=== PATIENT | female | born 1980 | race Caucasian/White ===

== ENCOUNTER 2016-09-08 09:31 | Emergency (ER) | payer BC, OTHER ==
[~2016-09-08] VITALS: Ht 167.6 cm; Wt 114.8 kg
[~2016-09-08 09:31] MED LIST: B-CO1CAP5 PO; BUSP15TA70 PO; CIPR-255 PO; CLR10 PO; CTP/1 PO; DOCU100C31 PO; DTR/5 PO; ESCI10TA17 PO; LOSA100T65 PO; MAGN400T6 PO; METO50TA16 PO; OMEP40CA PO; OXYC1TAB3 PO; PHEN-939 PO
[2016-09-08 09:34] VITALS: Ht 167.6 cm; Wt 114.8 kg
[2016-09-08] MEDS ORDERED: SODIUM CHLORIDE 0.9% 1000ML 1,000 ML IV STA ×2 (09:57)
[2016-09-08] MEDS ORDERED: KETOROLAC TROMETHAMINE 30 MG/ML VIAL IV STA (09:57)
[2016-09-08] MEDS ORDERED: ONDANSETRON INJ 2 MG/ML 2 ML VIAL IV STA (09:57)
--- NOTE | 2016-09-08 10:11 | EMERGENCY ROOM VISIT NOTE ---
History Report prepared by Nikita: Juma Rubin Under the Supervision of: Dr. Marina Campo M.D. First contact with patient: 09:41 Chief Complaint: FLU LIKE SX Stated Complaint: SEVERE STOMACH PAIN,DIARRHEA,FEVER,NAUSEA History of Present Illness The patient is a 36 year old female who presents to the Emergency Room with complaints of severe diarrhea starting about a week ago. She describes it to be watery in quality. She denies any blood in stool. The patient also complains of mid-abdominal cramps and nausea. The patient started having a fever about 4 days ago. Her highest temperature was 101 degrees Fahrenheit. The patient also notes a loss of appetite. She denies any recent ill contacts or any recent antibiotics. The patient denies vomiting, urinary symptoms, or any other complaints. She denies any history of cholecystectomy. She has a history of gallstones. Source of History: patient Onset: about a week ago Position: other (global) Symptom Intensity: severe Quality: other (diarrhea) Associated Symptoms: + abdominal pain, + fevers, + nausea, No urinary symptoms, No vomiting Review of Systems See HPI for pertinent positives & negatives. A total of 10 systems reviewed and were otherwise negative. Past Medical & Surgical Medical Problems: (1) Abscess (2) Anxiety (3) Back pain, acute (4) Bipolar disorder (5) Depression (6) Depressive Disorder Nec (7) Encounter for wound re-check (8) Heart burn (9) Herpes (10) Hypertension Nos (11) Migraine (12) Renal calculus (13) Suicidal ideation Surgical Problems: (1) Hx of tonsillectomy (2) Previous section Family History Cancer Diabetes mellitus Gallbladder disease Heart disease Hypertension Kidney disease Kidney stones Lung disease Social History Smoking Status: Current Every Day Smoker Alcohol Use: occasionally Marital Status: in relationship Housing Status: lives with significant other Occupation Status: employed Current/Historical Medications Scheduled Ascorbic Acid (Vitamin C), 1 TAB PO DAILY Azithromycin (Azithromycin), 1 TAB PO DAILY Buspirone Hcl (Buspar), 15 MG PO TID Clonidine Hcl (Catapres), 0.1 MG PO QAM Escitalopram Oxalate (Escitalopram Oxalate), 1 TAB PO DAILY Loratadine (Claritin), 10 MG PO DAILY Losartan Potassium (Cozaar), 50 MG PO DAILY Metoprolol Tartrate (Metoprolol Tartrate), 1 TAB PO BID Omeprazole (Prilosec), 40 MG PO DAILY Valacyclovir (Valtrex), 500 MG PO BID Allergies Coded Allergies: Lisinopril (Verified Adverse Reaction, Unknown, Cough, 09/08/16) Reported by PT Physical Exam Vital Signs Date Time Temp Pulse Resp B/P Pulse Ox O2 Delivery O2 Flow Rate FiO2 09/08/16 15:46 83 18 176/102 98 09/08/16 14:28 36.9 84 148/105 98 Room Air 09/08/16 12:44 73 20 157/78 96 Room Air 09/08/16 10:50 77 20 157/78 96 Room Air 09/08/16 09:34 37.2 86 20 142/93 95 Room Air Physical Exam Vital signs reviewed. General: Well-appearing, obese, in some discomfort. HEENT: No scleral icterus, PERRLA, neck supple. Atraumatic. Cardiovascular: Regular rate and rhythm, no extra sounds. Pulmonary: Clear to auscultation bilaterally, normal work of breathing. Abdomen: Soft, tenderness along the right upper quadrant, some guarding, nondistended, no tympany, positive bowel sounds. Musculoskeletal: Atraumatic, no peripheral edema. Neurologic: Patient awake alert and oriented x 3, full strength in all 4 extremities. Cranial nerves 2 through 12 grossly intact. Skin: Warm, dry, no rash Medical Decision & Procedures ER Provider Diagnostic Interpretation: X-ray results as stated below per interpretation by me and the radiologist: ABDOMEN 2VIEW W/PA CHEST RTN CLINICAL HISTORY: nausea, diarrhea pain. Nausea. COMPARISON STUDY: 02/18/2016 FINDINGS: The soft tissues, psoas shadows, renal outlines and intestinal gas pattern appear normal. There is no evidence for bowel obstruction. There is no evidence for free intraperitoneal air. No abnormal abdominal calcifications are seen. A frontal view of the chest was performed and is unremarkable. IMPRESSION: Normal study. Electronically signed by: Paolo Love M.D. 09/08/2016 2:26 PM Dictated Date/Time: 09/08/2016 2:26 PM US results as stated below per my review and radiologist interpretation: ABDOMINAL ULTRASOUND, RIGHT UPPER QUADRANT HISTORY: RUQ pain, diarrhea. COMPARISON: Abdomen and pelvis CT 02/11/2016. FINDINGS: Pancreas: Not well visualized due to overlying bowel gas. Liver: The liver is echogenic consistent with fatty change. Mildly enlarged measuring 20 cm in length. Gallbladder: Trace sludge and 1.8 cm stone. No gallbladder wall thickening. CBD: 3 mm. Right kidney: No hydronephrosis. IMPRESSION: 1. Cholelithiasis. No gallbladder wall thickening. 2. Hepatomegaly demonstrating fatty change. 3. The pancreas was not well visualized due to overlying bowel gas. Electronically signed by: Jesus Fitzgerald M.D. 09/08/2016 11:36 AM Dictated Date/Time: 09/08/2016 11:34 AM Laboratory Results 09/08/16 10:10 Red Blood Count 4.16, Mean Corpuscular Volume 86.8, Mean Corpuscular Hemoglobin 29.1, Mean Corpuscular Hemoglobin Concent 33.5, Mean Platelet Volume 10.1, Neutrophils (%) (Auto) 79.7, Lymphocytes (%) (Auto) 14.4, Monocytes (%) (Auto) 5.0, Eosinophils (%) (Auto) 0.3, Basophils (%) (Auto) 0.2, Neutrophils # (Auto) 9.40, Lymphocytes # (Auto) 1.70, Monocytes # (Auto) 0.59, Eosinophils # (Auto) 0.03, Basophils # (Auto) 0.02 09/08/16 10:10 Test 09/08/16 09:32 09/08/16 10:10 Lab Scanned Report Laboratory Report/Additional White Blood Count 11.79 K/uL (4.8-10.8) Red Blood Count 4.16 M/uL (4.2-5.4) Hemoglobin 12.1 g/dL (12.0-16.0) Hematocrit 36.1 % (37-47) Mean Corpuscular Volume 86.8 fL (80-100) Mean Corpuscular Hemoglobin 29.1 pg (25-34) Mean Corpuscular Hemoglobin Concent 33.5 g/dl (32-36) Platelet Count 206 K/uL (130-400) Mean Platelet Volume 10.1 fL (7.4-10.4) Neutrophils (%) (Auto) 79.7 % Lymphocytes (%) (Auto) 14.4 % Monocytes (%) (Auto) 5.0 % Eosinophils (%) (Auto) 0.3 % Basophils (%) (Auto) 0.2 % Neutrophils # (Auto) 9.40 K/uL (1.4-6.5) Lymphocytes # (Auto) 1.70 K/uL (1.2-3.4) Monocytes # (Auto) 0.59 K/uL (0.11-0.59) Eosinophils # (Auto) 0.03 K/uL (0-0.5) Basophils # (Auto) 0.02 K/uL (0-0.2) RDW Standard Deviation 43.7 fL (36.4-46.3) RDW Coefficient of Variation 13.7 % (11.5-14.5) Immature Granulocyte % (Auto) 0.4 % Immature Granulocyte # (Auto) 0.05 K/uL (0.00-0.02) Urine Color DK YELLOW Urine Appearance CLOUDY (CLEAR) Urine pH 6.0 (4.5-7.5) Urine Specific [place] 1.027 (1.000-1.030) Urine Protein 1+ (NEG) Urine Glucose (UA) NEG (NEG) Urine Ketones TRACE (NEG) Urine Occult Blood NEG (NEG) Urine Nitrite NEG (NEG) Urine Bilirubin NEG (NEG) Urine Urobilinogen NEG (NEG) Urine Leukocyte Esterase NEG (NEG) Urine WBC (Auto) 1-5 /hpf (0-5) Urine RBC (Auto) 0-4 /hpf (0-4) Urine Hyaline Casts (Auto) 0 /lpf (0-5) Urine Epithelial Cells (Auto) >30 /lpf (0-5) Urine Bacteria (Auto) NEG (NEG) Urine Renal Epithelial Cells /lpf (0-5) Urine Pathogenic Casts /lpf (0) Urine Mucus PRESENT (NONE PRSENT) Anion Gap 6.0 mmol/L (3-11) Est Creatinine Clear Calc Drug Dose 114.6 ml/min Estimated GFR () 98.0 Estimated GFR (Non- 84.6 BUN/Creatinine Ratio 13.1 (10-20) Calcium Level 8.3 mg/dl (8.5-10.1) Magnesium Level 1.9 mg/dl (1.8-2.4) Total Bilirubin 0.3 mg/dl (0.2-1) Direct Bilirubin < 0.1 mg/dl (0-0.2) Aspartate Amino Transf (AST/SGOT) 13 U/L (15-37) Alanine Aminotransferase (ALT/SGPT) 25 U/L (12-78) Alkaline Phosphatase 64 U/L (45-117) Total Protein 6.4 gm/dl (6.4-8.2) Albumin 3.3 gm/dl (3.4-5.0) Lipase 156 U/L (73-393) Influenza Type A Antigen Neg for Influ A (NEG) Influenza Type B Antigen Neg for Influ B (NEG) Laboratory results per my review. Medications Administered Medications (Trade) Dose Ordered Sig/Lucius Route Start Time Stop Time Status Last Admin Dose Admin Sodium Chloride 1,000 ml @ 999 mls/hr Q1H1M STAT IV 09/08/16 09:57 09/08/16 10:57 DC 09/08/16 10:21 999 MLS/HR Sodium Chloride (Nss 1000ml) 1,000 ml @ 200 mls/hr Q5H STAT IV 09/08/16 09:57 09/08/16 14:56 DC 09/08/16 10:54 200 MLS/HR Ondansetron HCl (Zofran Inj) 4 mg NOW STAT IV 09/08/16 09:57 09/08/16 10:00 DC 09/08/16 10:21 4 MG Ketorolac Tromethamine (Toradol Inj) 30 mg NOW STAT IV 09/08/16 09:57 09/08/16 10:00 DC 09/08/16 10:21 30 MG Potassium Chloride 40 meq 40 meq NOW STAT PO 09/08/16 12:26 09/08/16 12:28 DC 09/08/16 12:48 40 MEQ Promethazine HCl/ Sodium Chloride (Phenergan Inj/ Nss 50ml) 50.5 ml @ 204 mls/hr NOW STAT IV 09/08/16 13:10 09/08/16 13:24 DC 09/08/16 13:25 204 MLS/HR Azithromycin (Zithromax Tab) 500 mg NOW ONCE PO 09/08/16 15:15 09/08/16 15:16 DC 09/08/16 15:39 500 MG ED Course 0941: Past medical records reviewed. The patient was evaluated in room C05. A complete history and physical examination was performed. 0957: Toradol Inj 30 mg IV, Zofran Inj 4 mg IV, Sodium Chloride 1000 ml @ 200 mls/hr IV, Sodium Chloride 1000 ml @ 999 mls/hr IV 1226: Potassium Chloride 40 meq PO 1310: Promethazine HCl 12.5 mg/Sodium Chloride 50.5 ml @ 204 mls/hr IV 1515: Azithromycin 500 mg PO. Upon reevaluation, the patient appeared to have improvement of her symptoms. I discussed findings with her. She verbalized agreement of the treatment plan. She was discharged home. Medical Decision Differential diagnosis: Etiologies such as viral illness, appendicitis, diverticulitis, PUD, biliary pathology, UTI, pancreatitis, obstruction, mesenteric ischemia, aortic pathology , infections, inflammatory bowel disease, renal colic, as well as others were entertained. This patient was evaluated and appeared to be in no significant distress. IV access was obtained and laboratory work was drawn. The patient was hydrated with normal saline solution, given IV Toradol and Zofran. Laboratory work reveals a mild leukocytosis. On reevaluation the patient was feeling improved however she did complain of continued nausea. She was given IV Phenergan with relief. She is able to tolerate 40 mEq of by mouth potassium. Stool cultures were obtained and the peripheral smear is positive for Campylobacter. The patient has had diarrhea several times in the emergency department. She was informed of the findings and will be treated with a azithromycin. She'll follow -up with her physician for reevaluation this week and return to the ER for worsening of symptoms or any medical concerns. Impression Primary Impression: Campylobacter jejuni food poisoning Scribe Attestation The scribe's documentation has been prepared under my direction and personally reviewed by me in its entirety. I confirm that the note above accurately reflects all work, treatment, procedures, and medical decision making performed by me. Departure Information Dispostion Home / Self-Care Prescriptions Azithromycin (Azithromycin) 250 Mg Tab 1 TAB PO DAILY, #4 TABS Prov: Marina Campo M.D. 09/08/16 Referrals Sadie Bob DO (PCP) Forms HOME CARE DOCUMENTATION FORM, IMPORTANT VISIT INFORMATION Patient Instructions Campylobacter Culture Stool, My [facility] Additional Instructions Diagnosis: Campylobacter Azithromycin 250 mg daily for 4 more days, start tomorrow. Drink plenty of clear fluids. Tylenol 650 mg every 6 hours as needed for pain or fever. Return to emergency for worsening of symptoms or any medical concerns.
[2016-09-08 10:32] LABS: BASO % 0.2 %; BASO ABS # 0.02 K/uL (0-0.2); COMPLETE YES; EOS % 0.3 %; HEMATOCRIT 36.1 % (37-47); IG% 0.4 %; LYMPH % 14.4 %; MEAN CELL VOLUME 86.8 fL (80-100); MEAN CORPUSCULAR HEMOGLOBIN 29.1 pg (25-34); MEAN CORPUSCULAR HGB CONC 33.5 g/dl (32-36); MEAN PLATELET VOLUME 10.1 fL (7.4-10.4); NEUT % 79.7 %; PLATELET COUNT 206 K/uL (130-400); RED BLOOD COUNT 4.16 M/uL (4.2-5.4); WHITE BLOOD COUNT 11.79 K/uL (4.8-10.8)
[2016-09-08 10:35] LABS: URINE APPEARANCE CLOUDY (CLEAR); URINE BILIRUBIN NEG (NEG); URINE COLOR DK YELLOW; URINE EPITHELIAL CELL AUTO >30 /lpf (0-5); URINE NITRITE NEG (NEG); URINE SPECIFIC GRAVITY 1.027 (1.000-1.030); UROBILINOGEN NEG (NEG); ZZUR CULT IF INDIC CLEAN CATCH NO
[2016-09-08 10:44] LABS: MANUAL MICROSCOPIC REQUIRED? NO; REVIEW REQ? YES
[2016-09-08 10:48] LABS: ALT/SGPT 25 U/L (12-78); BLOOD UREA NITROGEN 12 mg/dl (7-18); BUN/CREATININE RATIO 13.1 (10-20); CALCIUM 8.3 mg/dl (8.5-10.1); CARBON DIOXIDE 30 mmol/L (21-32); CHLORIDE 107 mmol/L (98-107); CREATININE 0.89 mg/dl (0.60-1.20); GLUCOSE 99 mg/dl (70-99); MAGNESIUM 1.9 mg/dl (1.8-2.4); SODIUM 143 mmol/L (136-145)
[2016-09-08 10:51] LABS: ALKALINE PHOSPHATASE 64 U/L (45-117); AST/SGOT 13 U/L (15-37)
[2016-09-08 11:04] LABS: URINE MUCUS PRESENT (NONE PRSENT)
--- NOTE | 2016-09-08 11:38 | DIAGNOSTIC IMAGING REPORT ---
ABDOMINAL ULTRASOUND, RIGHT UPPER QUADRANT HISTORY: RUQ pain, diarrhea. COMPARISON: Abdomen and pelvis CT 02/11/2016. FINDINGS: Pancreas: Not well visualized due to overlying bowel gas. Liver: The liver is echogenic consistent with fatty change. Mildly enlarged measuring 20 cm in length. Gallbladder: Trace sludge and 1.8 cm stone. No gallbladder wall thickening. CBD: 3 mm. Right kidney: No hydronephrosis. IMPRESSION: 1. Cholelithiasis. No gallbladder wall thickening. 2. Hepatomegaly demonstrating fatty change. 3. The pancreas was not well visualized due to overlying bowel gas. Electronically signed by: Jesus Fitzgerald M.D. 09/08/2016 11:36 AM Dictated Date/Time: 09/08/2016 11:34 AM
[2016-09-08] MEDS ORDERED: POTASSIUM CHLORIDE 10 MEQ TABCR PO STA (12:26)
[2016-09-08] MEDS ORDERED: VALA500T60 PO (12:49)
[2016-09-08] MEDS ORDERED: ASCO10003 PO (12:49)
[2016-09-08] MEDS ORDERED: LOSA50TA6 PO (12:49)
[2016-09-08] MEDS ORDERED: METO-722 PO (12:49)
[2016-09-08] MEDS ORDERED: LXP/20 PO (12:49)
[2016-09-08] MEDS ORDERED: OMEP40CA41 PO (12:49)
[2016-09-08] MEDS ORDERED: PROMETHAZINE HCL INJ 12.5 MG in SODIUM CHLORIDE 0.9% 50ML 50 ML IV STA (13:10)
[2016-09-08 14:28] VITALS: TEMP 36.9
--- NOTE | 2016-09-08 14:29 | DIAGNOSTIC IMAGING REPORT ---
ABDOMEN 2VIEW W/PA CHEST RTN CLINICAL HISTORY: nausea, diarrhea pain. Nausea. COMPARISON STUDY: 02/18/2016 FINDINGS: The soft tissues, psoas shadows, renal outlines and intestinal gas pattern appear normal. There is no evidence for bowel obstruction. There is no evidence for free intraperitoneal air. No abnormal abdominal calcifications are seen. A frontal view of the chest was performed and is unremarkable. IMPRESSION: Normal study. Electronically signed by: Paolo Love M.D. 09/08/2016 2:26 PM Dictated Date/Time: 09/08/2016 2:26 PM
[2016-09-08] MEDS ORDERED: AZITHROMYCIN 250 MG TAB PO ONE (15:15)
[2016-09-08] MEDS ORDERED: AZIT-57 PO (15:17)
[2016-09-08 15:46] VITALS: BP 176/102; PULSE 83; O2SAT 98
--- NOTE | 2016-09-09 12:50 | Pharmacy Progress Note ---
ED Pharmacist Culture FollowUp Date of Service: Sep 09, 2016. Patient was sent home with a prescription for azithromycin, which should cover the Campylobacter growing from the patient's stool culture.
== END 2016-09-08 15:46 | disposition home or self-care (01) ==
LOC: C.EDB 09:32 → C.EDC 15:46
DX: A04.5 Campylobacter enteritis (principal); T62.91XA Toxic effect of unspecified noxious substance eaten as food, accidental (unintentional), initial encounter; X58.XXXA Exposure to other specified factors, initial encounter; F41.9 Anxiety disorder, unspecified; F31.9 Bipolar disorder, unspecified; F32.9 Major depressive disorder, single episode, unspecified; I10 Essential (primary) hypertension; G43.909 Migraine, unspecified, not intractable, without status migrainosus; Z87.442 Personal history of urinary calculi; Z91.5 Personal history of self-harm; Z80.9 Family history of malignant neoplasm, unspecified; Z83.3 Family history of diabetes mellitus; Z83.79 Family history of other diseases of the digestive system; Z82.49 Family history of ischemic heart disease and other diseases of the circulatory system; Z84.1 Family history of disorders of kidney and ureter; Z83.6 Family history of other diseases of the respiratory system; F17.210 Nicotine dependence, cigarettes, uncomplicated; Z79.899 Other long term (current) drug therapy

== ENCOUNTER → 2016-10-07 | Outpatient (CLI) | payer BC ==
[~2016-10-07] MED LIST changes: +ASCO10003 PO; +AZIT-57 PO; -B-CO1CAP5 PO; -CIPR-255 PO; -DOCU100C31 PO; -DTR/5 PO; -ESCI10TA17 PO; -LOSA100T65 PO; +LOSA50TA6 PO; +LXP/20 PO; -MAGN400T6 PO; +METO-722 PO; -METO50TA16 PO; -OMEP40CA PO; +OMEP40CA41 PO; -OXYC1TAB3 PO; -PHEN-939 PO; +VALA500T60 PO
--- NOTE | 2016-10-07 12:50 | DIAGNOSTIC IMAGING REPORT ---
KUB CLINICAL HISTORY: Right kidney stone. COMPARISON STUDY: CT of the abdomen and pelvis February 11, 2016 and KUB September 08, 2016. FINDINGS: Pelvic calcifications reflect phleboliths. No urinary calculi are identified on this exam. A few left upper quadrant densities are probably artifactual. IMPRESSION: No urinary calculi identified. Electronically signed by: Wei Giron M.D. 10/07/2016 12:49 PM Dictated Date/Time: 10/07/2016 12:47 PM
== END | disposition home or self-care (01) ==
LOC: C.RAD1850 12:36
PROVIDERS: ATTEND Urology
DX: N20.0 Calculus of kidney (principal)

== ENCOUNTER → 2017-02-16 | Outpatient (CLI) | payer BC ==
[~2017-02-16] MED LIST changes: -AZIT-57 PO; +ZTHM250 PO
[2017-02-16 17:35] LABS: BASO % 0.2 %; BASO ABS # 0.02 K/uL (0-0.2); COMPLETE YES; EOS % 1.3 %; HEMATOCRIT 42.1 % (37-47); IG% 0.5 %; LYMPH % 19.3 %; LYMPH ABS # 2.43 K/uL (1.2-3.4); MEAN CELL VOLUME 90.9 fL (80-100); MEAN CORPUSCULAR HEMOGLOBIN 29.2 pg (25-34); MEAN CORPUSCULAR HGB CONC 32.1 g/dl (32-36); MEAN PLATELET VOLUME 10.2 fL (7.4-10.4); MONO % 3.3 %; NEUT % 75.4 %; PLATELET COUNT 229 K/uL (130-400); RED BLOOD COUNT 4.63 M/uL (4.2-5.4); WHITE BLOOD COUNT 12.59 K/uL (4.8-10.8)
[2017-02-16 17:59] LABS: BLOOD UREA NITROGEN 9 mg/dl (7-18); BUN/CREATININE RATIO 11.1 (10-20); CALCIUM 8.9 mg/dl (8.5-10.1); CARBON DIOXIDE 30 mmol/L (21-32); CHLORIDE 105 mmol/L (98-107); CREATININE 0.83 mg/dl (0.60-1.20); GLUCOSE 112 mg/dl (70-99); POTASSIUM 3.5 mmol/L (3.5-5.1); SODIUM 141 mmol/L (136-145)
[2017-02-16 18:10] LABS: THYROID STIMULATING HORMONE 0.984 uIu/ml (0.300-4.500)
== END | disposition home or self-care (01) ==
LOC: C.LABBFT 11:55
PROVIDERS: ATTEND Family Medicine
DX: N92.0 Excessive and frequent menstruation with regular cycle (principal); I10 Essential (primary) hypertension

== ENCOUNTER → 2017-10-06 | Outpatient (CLI) | payer BC ==
[~2017-10-06] MED LIST changes: +AZIT-57 PO; -ZTHM250 PO
[2017-10-06 12:36] LABS: BASO % 0.3 %; BASO ABS # 0.03 K/uL (0-0.2); EOS % 0.9 %; EOS ABS # 0.09 K/uL (0-0.5); HEMATOCRIT 42.8 % (37-47); HEMOGLOBIN 14.5 g/dL (12.0-16.0); IG# 0.02 K/uL (0.00-0.02); LYMPH % 28.7 %; LYMPH ABS # 2.84 K/uL (1.2-3.4); MEAN CORPUSCULAR HEMOGLOBIN 30.1 pg (25-34); MEAN CORPUSCULAR HGB CONC 33.9 g/dl (32-36); MEAN PLATELET VOLUME 10.6 fL (7.4-10.4); NEUT % 65.9 %; NEUT ABS # 6.52 K/uL (1.4-6.5); PLATELET COUNT 226 K/uL (130-400); RED CELL DISTRIBUTION WIDTH CV 13.1 % (11.5-14.5); RED CELL DISTRIBUTION WIDTH SD 42.8 fL (36.4-46.3)
[2017-10-06 12:46] LABS: BLOOD UREA NITROGEN 10 mg/dl (7-18); CALCIUM 9.1 mg/dl (8.5-10.1); CARBON DIOXIDE 34 mmol/L (21-32); CREATININE 1.04 mg/dl (0.60-1.20); GLUCOSE 106 mg/dl (70-99); POTASSIUM 3.6 mmol/L (3.5-5.1); SODIUM 143 mmol/L (136-145)
== END | disposition home or self-care (01) ==
LOC: C.LABBFT 09:10
PROVIDERS: ATTEND Internal Medicine
DX: R10.13 Epigastric pain (principal)

== ENCOUNTER 2022-04-27 15:27 | Inpatient (IN) ==
[2022-04-27] MEDS ORDERED: cefTRIAXone SODIUM 2,000 MG/70 ML BAG IV STA (15:51)
[2022-04-27] MEDS ORDERED: SODIUM CHLORIDE 0.9% 1000ML 2,000 ML IV ONE (15:51)
[2022-04-27 15:58] LABS: Basophils # (auto) 0.02 K/uL (0-0.2); Basophils % (auto) 0.2 %; Eosinophils # (auto) 0.03 K/uL (0-0.50); Eosinophils % (auto) 0.3 %; Hematocrit (blood only) 35.7 % (34.1-44.9); Hemoglobin 11.8 g/dl (12.0-16.0); Immature Granulocytes # (auto) 0.04 K/uL (0.00-0.02); Immature Granulocytes % (auto) 0.4 %; Lymphocytes # (auto) 1.62 K/uL (1.2-3.4); Lymphocytes % (auto) 14.4 %; Mean Corpuscular Hemoglobin 30.1 pg (25.0-34.0); Mean Corpuscular Hgb Conc 33.1 g/dL (32.0-36.0); Mean Corpuscular Volume 91.1 fL (80.0-100.0); Mean Platelet Volume 9.7 fL (9.4-12.3); Monocytes # (auto) 0.68 K/uL (0.24-0.82); Neutrophils # (auto) 8.89 K/uL (1.4-6.5); Neutrophils % (auto) 78.7 %; Platelet Count 159 K/uL (130-400); RDW Coefficient of Variation 13.2 % (11.5-14.5); RDW Standard Deviation 44.3 fL (36.4-46.3); Red Blood Count 3.92 M/uL (3.93-5.22); White Blood Count 11.28 K/ul (4.8-10.8)
--- NOTE | 2022-04-27 16:00 | Emergency Department Note ---
Impression & Plan Pyelonephritis, Bacteremia due to Gram-negative bacteria, Bilateral flank pain ED Provider Note NAME: TIFFANIE HANNAH AGE: 42 SEX: F : 1980 ARRIVES VIA: Walk-In INFORMANT: Patient, ED PROVIDER(S): Prashanth Smith DO CHIEF COMPLAINT: Flank pain HPI: The patient is a 42-year-old female who presented to the emergency depart [facility] for flank pain. The patient has a history of pyelonephritis. She was diagnosed with pyelonephritis last evening after a visit to the emergency department. The patient started having urinary symptoms approximately the th of this month. She also had her menses. She did not initially present to be seen because she thought she would have blood in her urine anyway and has a history of renal colic. The patient states her symptoms started to worsen. She presented to the emergency department last evening. She had a complete work-up which included a CT of the abdomen and pelvis. This appeared to be consistent with upper urinary tract infection. She was given IV Rocephin last evening and started on cefdinir. She did take 1 dose of the cefdinir. She states that she continues to have flank pain which is mild to moderate. She also has chills. She noticed nausea earlier in the day and dizziness at this time denies having any nausea or vomiting. She denies having any black or bloody bowel moods. She is not been seen by her family doctor recently. She does see a [facility]ian at [facility]. ROS: See above HPI for pertinent positives & negatives. A total of 10 systems reviewed and were otherwise negative. PAST MEDICAL HISTORY: See Below PAST SURGICAL HISTORY: See Below FAMILY HISTORY: See Below SOCIAL HISTORY: See Below HOME MEDICATIONS: See Below ALLERGIES: See Below VITALS: See Below PHYSICAL EXAMINATION: GENERAL: Patient is awake alert in no acute distress patient is resting comfortably and showing no signs of anxiety EYES: The conjunctivae are clear. The pupils are round and reactive. EARS, NOSE, MOUTH AND THROAT: The nose is without any evidence of any deformity. Mucous membranes are moist. Tongue is midline. NECK: The neck is nontender and supple. RESPIRATORY: Normal respiratory effort is noted there is no evidence of wheezing rhonchi or rales CARDIOVASCULAR: Tachycardic rate with regular rhythm was noted. There is no definite murmur. GASTROINTESTINAL: The abdomen is soft. Abdomen is nontender. BACK: Bilateral CVA tenderness was noted which was mild. Range of motion is intact. MUSCULOSKELETAL/EXTREMITIES: There is no evidence of gross deformity full range of motion is noted in the hips and shoulders. SKIN: There is no obvious evidence of any rash. There are no petechiae, pallor or cyanosis noted. NEUROLOGIC: Patient is awake alert and oriented x3 strength is symmetric patellar reflexes are 2+ bilaterally MEDICAL DECISION MAKING: The patient is a 42-year-old female who presented to the emergency department for an evaluation of flank pain. The patient was called to come back to the emergency department for IV antibiotics and inpatient treatment for gram- negative bacteremia. She has a pyelonephritis that was noted on CT yesterday. The patient has been taking her outpatient antibiotics and has seen some improvement in her symptoms. She was evaluated and found have tachycardia. She was not hypotensive. I discussed the patient's condition with the [facility]. They have agreed to evaluate the patient in the emergency department for further management and disposition. Triage Nursing notes reviewed. Prior medical records reviewed Vital Signs: reviewed and remarkable for tachycardia Differential diagnosis: Ovarian torsion, endometriosis, ectopic , pelvic pain, UTI, cystitis, appendicitis, diverticulitis, mesenteric ischemia, PID, inflammatory bowel disease, renal colic, Bartholin's abscess, cervicitis, as well as other pathologies. ER treatment provided: See below Diagnostics interpreted by me: ECG: none Cardiac Monitoring: An order was placed for continuous cardiac monitoring. The monitor shows a rate of 106 bpm with sinus tachycardia. Laboratory studies: As stated above and show below. Imaging studies: See below Consultation(s): I discussed this case with Gloria who is on-call for the [facility]. Past Med/Surg History Medical History Adenomyomatosis of gallbladder Anxiety Bipolar 1 disorder Depression GERD (gastroesophageal reflux disease) History of cholelithiasis Hypertension Kidney stones Migraine Obesity (BMI 35.0-39.9 without comorbidity) Tobacco abuse Surgical History History of bilateral tubal ligation History of section X2 History of cystoscopy STENT PLACEMENT/REMOVAL 2017 History of lithotripsy History of tonsillectomy History of tooth extraction Family History Mother Anxiety Depression Gallbladder disease Hypertension Father Anxiety ADHD (attention deficit hyperactivity disorder) Cardiac disorder Hypertension Kidney stones Myocardial infarction Skin cancer Neurofibroma Sister Anxiety ADHD (attention deficit hyperactivity disorder) Cardiac disorder Depression Hypertension Neurofibroma Uncle Diabetes Denies family history of Ovarian cancer Prostate cancer Breast cancer Colorectal cancer Social History Smoking Status: Never smoker Tobacco Type: Cigarettes Cigarettes Per Day: HX OF 1PPD X20 YEARS (STOPPED DURING EACH ); Second Hand Exposure: No; Hx Alcohol Use: Yes Alcohol type: wine Hx Substance Use: Yes Substance Use Type Other:: OCC. USE Preferred Language: Peruvian Communication Ability: Effective Outbound Sales Professional Required: No Beliefs That Will Affect Care: None marital status: Current Living Situation: Family Feels Safe at Home: Yes Dental Care, Regularly: Yes Physical Activity Frequency: Other Physical Activity Frequency Comment: limited by physical condition Assistive Devices: Contacts and Glasses Allergies Allergies Allergy/AdvReac Type Severity Reaction Status Date / Time lisinopril AdvReac Unknown Cough Verified 10/08/20 14:31 Home Meds Home Medications Medication Instructions Recorded Confirmed esomeprazole magnesium 40 mg 40 mg PO QAM 10/05/18 10/08/20 capsule,delayed release (Nexium) fluticasone propionate 50 See Rx Instructions intranasal 12/26/18 10/08/20 mcg/actuation nasal DAILY #1 g spray,suspension lidocaine HCl 2 % topical cream 2 applic topical DAILY PRN Skin 12/26/18 10/08/20 Cleansing clonidine HCl 0.1 mg tablet 0.1 mg PO DAILY 10/08/20 10/08/20 loratadine 10 mg tablet (Claritin) 10 mg PO DAILY allergy 10/08/20 10/08/20 ondansetron 4 mg disintegrating 4 mg PO DAILY PRN nausea 10/08/20 10/08/20 tablet Previous Rx's Medication Instructions Recorded rizatriptan 5 mg tablet 5 mg PO Q2H PRN migraine headache 11/14/19 #10 tabs valacyclovir 500 mg tablet 500 mg PO BID #60 tabs 11/14/19 losartan 100 mg tablet 100 mg PO DAILY #30 tabs 10/08/20 cefdinir 300 mg capsule 300 mg PO BID 14 days #28 caps 04/27/22 fluconazole 150 mg tablet 150 mg PO ONCE 1 dose #1 tab 04/27/22 (Diflucan) ondansetron 4 mg disintegrating 4 mg PO Q8H PRN nausea and 04/27/22 tablet vomiting #10 tabs Results & Data (ED) Vital Signs Vital Signs - 24 hr 04/27/22 15:29 04/27/22 16:04 Temperature 36.8 C Temperature Source Temporal Artery Scan Pulse Rate 126 H Pulse Rate [Right Apical] 106 H Respiratory Rate 20 18 Respiratory Effort / Characteristics Non-Labored Respiratory Depth Normal Blood Pressure 158/94 H Blood Pressure [Right Arm] 145/102 H Blood Pressure Mean 115 Blood Pressure Mean [Right Arm] 116 Pulse Oximetry 100 98 Oxygen Delivery Method Room Air Room Air Sepsis Recent Fever Within 48 Hours No Sepsis New/Unexplained Change in Mental Status N/A Sepsis Action Taken by Nursing No Action Required Home Medications Current Medication List: was personally reviewed by me Laboratory Data Attestation: I reviewed the patient's lab results. Result diagrams: 04/27/22 15:45 04/27/22 15:45 Lab Results 04/27/22 04/27/22 Range/Units 15:45 15:45 WBC 11.28 H (4.8-10.8) K/ul RBC 3.92 L (3.93-5.22) M/uL Hgb 11.8 L (12.0-16.0) g/dl Hct 35.7 (34.1-44.9) % MCV 91.1 (80.0-100.0) fL MCH 30.1 (25.0-34.0) pg MCHC 33.1 (32.0-36.0) g/dL RDW Std Deviation 44.3 (36.4-46.3) fL RDW Coeff of [employer] 13.2 (11.5-14.5) % Plt Count 159 (130-400) K/uL MPV 9.7 (9.4-12.3) fL Immature Gran % (Auto) 0.4 % Neut % (Auto) 78.7 % Lymph % (Auto) 14.4 % [place] % (Auto) 6.0 % Eos % (Auto) 0.3 % Baso % (Auto) 0.2 % Neut # (Auto) 8.89 H (1.4-6.5) K/uL Lymph # (Auto) 1.62 (1.2-3.4) K/uL [place] # (Auto) 0.68 (0.24-0.82) K/uL Eos # (Auto) 0.03 (0-0.50) K/uL Baso # (Auto) 0.02 (0-0.2) K/uL Immature Gran # (Auto) 0.04 H (0.00-0.02) K/uL Sodium 139 (136-145) mmol/L Potassium 3.4 L (3.5-5.1) mmol/L Chloride 105 (98-107) mmol/L Carbon Dioxide 29 (21-32) mmol/L Anion Gap 5 (3-11) BUN 12 (6-23) mg/dl Creatinine 0.74 (0.6-1.2) mg/dl Est Cr Clr Drug Dosing 107.2 ml/min Est GFR ( Amer) 117.5 ml/min Est GFR (Non-Af Amer) 101.3 ml/min BUN/Creatinine Ratio 16.2 (10-20) Glucose 106 H (70-99(Fasting)) mg/dl Calcium 9.3 (8.5-10.1) mg/dl Total Bilirubin 0.4 (0.2-1.0) mg/dl AST 21 (13-39) U/L ALT 28 (7-52) U/L Alkaline Phosphatase 50 (34-104) U/L C-Reactive Protein 13.42 H (0-0.5) mg/dl Total Protein 6.7 (6.0-8.3) gm/dl Albumin 4.0 (3.4-5.0) gm/dl Globulin 2.7 (2.5-4.0) gm/dl Albumin/Globulin Ratio 1.5 (0.9-2) Discharge Plan Visit Data Chief Complaint: Illness Stated Complaint: UTI, PHARMACY REFFERED ED Provider: Prashanth Smith Discharge Problem: Pyelonephritis, Bacteremia due to Gram-negative bacteria, Bilateral flank pain Patient Disposition: Being Evaluated by Hospitalist Forms Stand Alone Forms: My [facility] Go[employer]oll[employer] Prescriptions Prescriptions: No Action fluticasone propionate 50 mcg/actuation spray,suspension See Rx Instructions intranasal DAILY Qty: 1 Label Comments: 1 to 2 sprays intranasal DAILY; Rx Instructions: 1 to 2 sprays intranasal DAILY; lidocaine HCl 2 % cream 2 applic TOP DAILY PRN (Reason: Skin Cleansing) Label Comments: TOP apply to affected area PRN; Rx Instructions: TOP apply to affected area PRN; rizatriptan 5 mg tablet 5 mg PO Q2H PRN (Reason: migraine headache) Qty: 10 12RF Rx Instructions: do not exceed 6 doses per 24 hrs valacyclovir 500 mg tablet 500 mg PO BID Qty: 60 12RF esomeprazole magnesium [Nexium] 40 mg Capsule,Delayed Release(Dr/Ec) 40 mg PO QAM clonidine HCl 0.1 mg tablet 0.1 mg PO DAILY ondansetron 4 mg tablet,disintegrating 4 mg PO DAILY PRN (Reason: nausea) Rx Instructions: 4 mg PO Dissolve one tablet in mouth every 8 hours PRN; loratadine [Claritin] 10 mg Tablet 10 mg PO DAILY losartan 100 mg tablet 100 mg PO DAILY Qty: 30 0RF cefdinir 300 mg capsule 300 mg PO BID 14 Days Qty: 28 0RF ondansetron 4 mg tablet,disintegrating 4 mg PO Q8H PRN (Reason: nausea and vomiting) Qty: 10 0RF fluconazole [Diflucan] 150 mg tablet 150 mg PO ONCE Qty: 1 0RF Referrals Referrals: Daryl Gregory III, MD [Primary Care Provider] -
[2022-04-27 16:18] LABS: Albumin Globulin Ratio 1.5 (0.9-2); BUN Creatinine Ratio 16.2 (10-20); Bilirubin,Total 0.4 mg/dl (0.2-1.0); C Reactive Protein 13.42 mg/dl (0-0.5); Calcium 9.3 mg/dl (8.5-10.1); Creatinine Clr Calc Pharmacy 107.2 ml/min; Est GFR (African American) 117.5 ml/min; Est GFR (Non-African American) 101.3 ml/min; Globulin 2.7 gm/dl (2.5-4.0); Potassium 3.4 mmol/L (3.5-5.1); Total Protein 6.7 gm/dl (6.0-8.3)
[2022-04-27] MEDS ORDERED: POTASSIUM CHLORIDE CRTAB 20 MEQ TABCR PO STA (17:16)
[2022-04-27 17:33] LABS: Pregnancy Test, Serum Negative (Negative)
--- NOTE | 2022-04-27 18:02 | History & Physical Report ---
Date of Service April 27, 2022 Assessment & Plan (1) Bacteremia due to Gram-negative bacteria: (2) Pyelonephritis: Plan: Patient is 42-year-old female with PMH depression, HTN, GERD, tobacco use presented to ER for dysuria and positive blood cultures. 10 days dysuria, urinary frequency. +lower abdominal pain, right flank pain, fever/chills. Seen in ER 04/26/2022 and diagnosed with UTI, pyelonephritis and was given dose of IV Rocephin and discharged on cefdinir. 04/26/22 preliminary blood cultures +gram negative bacilli 04/26/22 urine culture pending 04/26/22 CT Abd/pelvis: 1. Urothelial thickening of the renal collecting systems and ureters is suggestive of an ascending infection. Patchy areas of ill-defined decreased enhancement within the left kidney are suggestive of associated pyelonephritis. 2. Urinary bladder wall thickening suggests cystitis. 3. No bowel obstruction or bowel wall thickening. Normal appendix. Today WBC: 11, Lactate: WNL, Procalcitonin: 0.25 Repeat blood cultures pending In ER given Rocephin IV, 2L NSS Continue Rocephin IVF CBC, BMP in am If no improvement or worsening consider urology consult (3) Hypokalemia: Plan: K: 3.4. Magnesium: 1.8 Replace and monitor (4) Hypertension: Plan: Continue amlodipine, losartan, metoprolol succinate (5) Depression: Plan: Continue escitalopram, buspirone (6) GERD (gastroesophageal reflux disease): Plan: Continue PPI (7) Tobacco use: Plan: Smoking cessation encouraged Denies nicotine patch at this time DVT Prophylaxis SCDs Follows with Dr Mendosa for routine care Pt was seen and care coordinated with Dr Lozano. See addendum History of Present Illness Chief Complaint: dysuria, positive blood cultures Primary Care Provider: Gabriel Mendosa MD Patient is 42-year-old female with PMH depression, HTN, GERD, tobacco use presented to ER for dysuria and positive blood cultures. Patient was seen in ER 04/26/2022. She reports 10 days of urinary frequency, dysuria. Yesterday she started with lower abdominal discomfort and then right flank discomfort. Also complains of fever, chills, nausea, vomiting. She was diagnosed with UTI, pyelonephritis and was given dose of IV Rocephin and discharged on cefdinir. Today patient's preliminary blood cultures Positive for gram-negative bacilli. Patient was called and she returned to ER today. Patient states continued n ausea, intermittent vomiting. Having some right flank discomfort. Also has continued dysuria and urinary frequency. Denies noted hematuria. Denies hematemesis, diarrhea, constipation, GARDNER, dizziness, syncope, vision changes, neck pain, CP, SOB, orthopnea, palpitations, cough, sore throat, choking, otalgia, rhinorrhea, paresthesias, weakness, extremity weakness, extremity edema, rashes. Allergies Allergy/AdvReac Type Severity Reaction Status Date / Time lisinopril AdvReac Intermediate Cough Verified 04/27/22 17:14 Home Medications Medication Instructions Recorded Confirmed Type fluticasone propionate 50 1 - 2 spray intranasal DAILY PRN 12/26/18 04/27/22 History mcg/actuation nasal Congestion #1 g spray,suspension valacyclovir 500 mg tablet 500 mg PO BID #60 tabs 11/14/19 04/27/22 Rx loratadine 10 mg tablet (Claritin) 10 mg PO DAILY allergy 10/08/20 04/27/22 History losartan 100 mg tablet 100 mg PO DAILY #30 tabs 10/08/20 04/27/22 Rx amlodipine 5 mg tablet 7.5 mg PO DAILY 04/27/22 04/27/22 History bisacodyl 5 mg tablet,delayed 5 mg PO DAILY PRN Constipation 04/27/22 04/27/22 History release (Dulcolax (bisacodyl)) buspirone 5 mg tablet 5 mg PO TID 04/27/22 04/27/22 History cefdinir 300 mg capsule 300 mg PO BID 14 days #28 caps 04/27/22 04/27/22 Rx escitalopram oxalate 10 mg tablet 10 mg PO DAILY 04/27/22 04/27/22 History esomeprazole magnesium 20 mg 40 mg PO DAILY 04/27/22 04/27/22 History capsule,delayed release (Nexium) fluconazole 150 mg tablet 150 mg PO DIRECTED PRN "AFTER 04/27/22 04/27/22 History (Diflucan) ANTIBIOTICS" PER PT. iron,carbonyl 65 mg-vitamin C 125 1 tab PO DAILY 04/27/22 04/27/22 History mg tablet,delayed release (Vitron-C) metoprolol succinate 50 mg 50 mg PO DAILY 04/27/22 04/27/22 History tablet,extended release 24 hr [id number]-Ca carb-vit K 1 tab PO DAILY 04/27/22 04/27/22 History 18 mg iron-400 mcg-500 mg tablet ondansetron 4 mg disintegrating 4 mg PO Q8H PRN nausea and 04/27/22 04/27/22 Rx tablet vomiting #10 tabs Past Med/Surg History Medical History Adenomyomatosis of gallbladder Anxiety Bipolar 1 disorder Depression GERD (gastroesophageal reflux disease) History of cholelithiasis Hypertension Kidney stone Kidney stones Migraine Obesity (BMI 35.0-39.9 without comorbidity) Tobacco abuse Tobacco use Surgical History History of bilateral tubal ligation History of section X2 History of cystoscopy STENT PLACEMENT/REMOVAL 2017 History of lithotripsy History of tonsillectomy History of tooth extraction Family History Mother Anxiety Depression Gallbladder disease Hypertension Father Anxiety ADHD (attention deficit hyperactivity disorder) Cardiac disorder Hypertension Kidney stones Myocardial infarction Skin cancer Neurofibroma Sister Anxiety ADHD (attention deficit hyperactivity disorder) Cardiac disorder Depression Hypertension Neurofibroma Uncle Diabetes Denies family history of Ovarian cancer Prostate cancer Breast cancer Colorectal cancer Social History Smoking Status: Never smoker Tobacco Type: Cigarettes Cigarettes Per Day: HX OF 1PPD X20 YEARS (STOPPED DURING EACH ); Second Hand Exposure: No; Do You Dip or Chew Tobacco: No; Hx Alcohol Use: Yes Alcohol type: wine Hx Substance Use: Yes Substance Use Type Other:: OCC. USE Preferred Language: Bahamian Communication Ability: Effective Masonry Inspector Required: No Beliefs That Will Affect Care: None marital status: Current Living Situation: Family Other Information That Helps Us Care for You: No Feels Safe at Home: Yes Safety Concerns: Feels Safe At This Time Dental Care, Regularly: Yes Physical Activity Frequency: Other Physical Activity Frequency Comment: limited by physical condition Assistive Devices: Contacts and Glasses Review of Systems Review of Systems: All systems reviewed & are unremarkable except as noted in HPI & below Physical Exam Physical Exam: General: no distress, WDWN Head: normocephalic, atraumatic Eyes: conjunctiva non-injected, anicteric ENT: normal inspection external ears, nose, mucous membranes moist Neck: supple, trachea midline, non-tender Lungs: clear, no respiratory distress, no wheezing/rhonchi/rales CV: +tachycardia, regular rhythm, no murmur, no pretibial edema Abd: normal BS, soft, +tenderness to palpation RLQ, LLQ, + R CVA tenderness Ext: no cyanosis, no calf tenderness Neuro: A&O x 3, no focal deficits noted, normal affect Skin: warm, dry Results & Data Results & Data ([facility]) Vital Signs (Past 12 Hours) Vital Signs Temp Pulse Pulse Resp BP BP Pulse Ox 04/27/22 17:31 102 H 16 150/89 H 100 04/27/22 16:04 106 H 18 145/102 H 98 04/27/22 15:29 36.8 C 126 H 20 158/94 H 100 O2 Del Method 04/27/22 17:31 Room Air 04/27/22 16:04 Room Air 04/27/22 15:29 Room Air Laboratory Results Short CBC 04/27/22 Range/Units 15:45 WBC 11.28 H (4.8-10.8) K/ul Hgb 11.8 L (12.0-16.0) g/dl Hct 35.7 (34.1-44.9) % Plt Count 159 (130-400) K/uL BMP 04/27/22 15:45 Sodium 139 Potassium 3.4 L Chloride 105 Carbon Dioxide 29 BUN 12 Creatinine 0.74 Glucose 106 H Calcium 9.3 Liver Function 04/27/22 Range/Units 15:45 Total Bilirubin 0.4 (0.2-1.0) mg/dl AST 21 (13-39) U/L ALT 28 (7-52) U/L Alkaline Phosphatase 50 (34-104) U/L Albumin 4.0 (3.4-5.0) gm/dl Code Status & VTE Plan VTE Prophylaxis Plan VTE Prophylaxis will be ordered: Yes Supervising Physician Co-Signing Physician Notes Patient is a 42-year-old female with history of HTN, GERD and other medical problems presents with history of dysuria, positive blood cultures. Patient was initially evaluated yesterday for UTI and was sent home on cefdinir. Patient was brought back to the ED today as blood cultures were growing gram-negative bacilli. Patient admits to have dysuria, right upper quadrant/flank discomfort associated with intermittent nausea, vomiting. Please review HPI for complete details of presentation. Blood work showed leukocytosis 11.2, hemoglobin 11.8, potassium 3.4, glucose 116. Normal lactate levels. CT abdomen done on 04/26/2022 showed findings suggestive of pyelonephritis/cystitis. On exam patient is well-built and nourished, no apparent distress, normocephalic/atraumatic, lungs are clear to auscultation, normal breath sounds, S1, S2, no murmur, no pedal edema, abdomen soft, right upper quadrant tender, right flank tender, normal bowel sounds, alert, awake, oriented, grossly no f ocal deficits. Patient is admitted for management of acute pyelonephritis, gram-negative bacteremia. Empirically started on Rocephin. Continue IV fluids. Repeat blood cultures. Replace potassium levels. I personally reviewed the record. Patient is interviewed and examined at bedside. Patient's care is coordinated with Jean Pugh PA-C. Please refer to the documentation above for details of patient's presentation and for discussion of other issues.
[2022-04-27] MEDS ORDERED: POLYETHYLENE (MIRALAX) 17 GM PACK PO PRN (20:04)
[2022-04-27] MEDS ORDERED: PROMETHAZINE HCL 12.5 MG in SODIUM CHLORIDE 0.9% 50 ML IV PRN (20:04)
[2022-04-27] MEDS ORDERED: ACETAMINOPHEN 325 MG TAB PO PRN (20:04)
[2022-04-27] MEDS ORDERED: ONDANSETRON INJ 2 MG/ML 2 ML VIAL IV STA (20:24)
[2022-04-27] MEDS: SODIUM CHLORIDE 0.9% 1000ML 1,000 ML IV SCH (21:25)
[2022-04-27] MEDS: busPIRone 5 MG TAB PO SCH (21:28)
[2022-04-27] MEDS: valACYclovir HCL 500 MG TABLET PO SCH (21:28)
[2022-04-28 07:35] LABS: BUN Creatinine Ratio 21.4 (10-20); Calcium 8.2 mg/dl (8.5-10.1); Creatinine Clr Calc Pharmacy 143.1 ml/min; Est GFR (African American) 135.2 ml/min; Est GFR (Non-African American) 116.6 ml/min
[2022-04-28 07:40] LABS: Basophils # (auto) 0.02 K/uL (0-0.2); Basophils % (auto) 0.3 %; Eosinophils # (auto) 0.04 K/uL (0-0.50); Eosinophils % (auto) 0.5 %; Immature Granulocytes # (auto) 0.02 K/uL (0.00-0.02); Immature Granulocytes % (auto) 0.3 %; Lymphocytes % (auto) 18.6 %; Monocytes # (auto) 0.65 K/uL (0.24-0.82); Monocytes % (auto) 8.6 %; Neutrophils # (auto) 5.39 K/uL (1.4-6.5); Neutrophils % (auto) 71.7 %
[2022-04-28 07:59] LABS: Hematocrit (blood only) 30.5 % (34.1-44.9); Hemoglobin 10.1 g/dl (12.0-16.0); Mean Corpuscular Hemoglobin 30.2 pg (25.0-34.0); Mean Corpuscular Hgb Conc 33.1 g/dL (32.0-36.0); Mean Corpuscular Volume 91.3 fL (80.0-100.0); Mean Platelet Volume 10.1 fL (9.4-12.3); Platelet Count 126 K/uL (130-400); RDW Coefficient of Variation 13.4 % (11.5-14.5); RDW Standard Deviation 45.4 fL (36.4-46.3); Red Blood Count 3.34 M/uL (3.93-5.22); White Blood Count 7.52 K/ul (4.8-10.8)
[2022-04-28] MEDS: LORATADINE 10 MG TAB PO SCH (08:07)
[2022-04-28] MEDS: valACYclovir HCL 500 MG TABLET PO SCH ×2 (08:07→20:55)
[2022-04-28] MEDS: ESCITALOPRAM OXALATE 10 MG TAB PO SCH (08:07)
[2022-04-28] MEDS: busPIRone 5 MG TAB PO SCH ×3 (08:07→20:56)
[2022-04-28] MEDS: PANTOprazole 40 MG TAB PO SCH (08:08)
[2022-04-28] MEDS: METOPROLOL SUCC 50MG EXT REL TAB PO SCH (08:08)
[2022-04-28] MEDS: amLODIPine BESYLATE 5 MG TAB PO SCH (08:08)
[2022-04-28] MEDS: LOSARTAN POTASSIUM 50 MG TAB PO SCH (08:08)
--- NOTE | 2022-04-28 10:37 | Electrocardiogram Report ---
Test Reason : Blood Pressure : / mmHG Vent. Rate : 088 BPM Atrial Rate : 088 BPM P-R Int : 140 ms QRS Dur : 090 ms QT Int : 352 ms P-R-T Axes : 060 040 043 degrees QTc Int : 425 ms Normal sinus rhythm Normal ECG When compared with ECG of 08-OCT-2020 14:37, No significant change was found Confirmed by Uziel Dean ([id number]) on 04/28/2022 10:36:40 AM Referred By: REFERRED SELF Confirmed By:Uziel Dean
[2022-04-28] MEDS: SODIUM CHLORIDE 0.9% 1000ML 1,000 ML IV SCH (10:59)
--- NOTE | 2022-04-28 11:38 | Hospitalist Progress Note ---
Date of Service April 28, 2022 Assessment & Plan (1) Bacteremia due to Gram-negative bacteria: (2) Pyelonephritis: Plan: Patient is 42-year-old female with PMH depression, HTN, GERD, tobacco use presented to ER for dysuria and positive blood cultures. 10 days dysuria, urinary frequency. +lower abdominal pain, right flank pain, fever/chills. Seen in ER 04/26/2022 and diagnosed with UTI, pyelonephritis and was given dose of IV Rocephin and discharged on cefdinir. 04/26/22 preliminary blood cultures +gram negative bacilli 04/26/22 urine culture is growing gram-negative bacilli 04/26/22 CT Abd/pelvis: 1. Urothelial thickening of the renal collecting systems and ureters is suggestive of an ascending infection. Patchy areas of ill-defined decreased enhancement within the left kidney are suggestive of associated pyelonephritis. 2. Urinary bladder wall thickening suggests cystitis. 3. No bowel obstruction or bowel wall thickening. Normal appendix. On 04/27/2022 WBC: 11, Lactate: WNL, Procalcitonin: 0.25 Repeat blood cultures pending Started on intravenous Rocephin and IV fluid Continue Rocephin Clinically improved and awaiting final culture and sensitivity results (3) Hypokalemia: Plan: K: 3.4. Magnesium: 1.8 Replace and monitor Electrolytes are corrected (4) Hypertension: Plan: Continue amlodipine, losartan, metoprolol succinate Blood pressure remains stable and controlled (5) Depression: Plan: Continue escitalopram, buspirone (6) GERD (gastroesophageal reflux disease): Plan: Continue PPI (7) Tobacco use: Plan: Smoking cessation encouraged Denies nicotine patch at this time DVT Prophylaxis SCDs Follows with Dr Mendosa for routine care Likely discharge tomorrow following culture and sensitivity report Admission and Anticipated Discharge Date Admission Date: April 27, 2022 Subjective 04/28/2022 The patient was seen and examined in medical telemetry unit She has been feeling much better and denies any pain in the right loin No abdominal pain, nausea or vomiting and no fever and or chills Review of Systems Review of Systems: All systems reviewed and are unremarkable except as noted below Physical Exam Physical Exam: Lying in bed comfortably Constitutional: average body habitus; not ill appearing Eyes: PERRL, conjunctivae normal, anicteric sclerae ENMT: external ear and nose normal, oropharynx normal Neck: trachea midline, no thyromegaly Respiratory: no respiratory distress Auscultation: lungs clear to auscultation bilaterally Cardiovascular: Rate/Rhythm: regular rate and regular rhythm; not tachycardic Heart Sounds: normal S1 and normal S2; no murmur Extremities: no edema Gastrointestinal (Abdomen): Inspection/Auscultation: normal bowel sounds; abdomen not distended Percussion/Palpation: abdomen soft; abdomen nontender (Renal angles are not tender) Musculoskeletal: No acute arthritis in any joint Neurologic: Alert, awake and oriented x3. No focal sensory or motor deficit appreciated Psychiatric: A+Ox3, euthymic affect Lymphatic: no cervical or axillary lymphadenopathy Results & Data Results & Data ([facility]) Vital Signs (Past 12 Hours) Vital Signs Temp Pulse Pulse Resp BP BP Pulse Ox 04/28/22 11:10 37 C 73 18 130/83 98 04/28/22 07:48 88 04/28/22 07:40 37.5 C 95 H 20 152/94 H 100 04/28/22 05:01 37.7 C H 85 18 142/91 H 97 04/27/22 23:40 37.2 C O2 Del Method 04/28/22 11:10 Room Air 04/28/22 07:48 04/28/22 07:40 Room Air 04/28/22 05:01 Room Air 04/27/22 23:40 Laboratory Results Short CBC 04/27/22 04/28/22 Range/Units 15:45 06:59 WBC 11.28 H 7.52 (4.8-10.8) K/ul Hgb 11.8 L 10.1 L (12.0-16.0) g/dl Hct 35.7 30.5 L (34.1-44.9) % Plt Count 159 126 L (130-400) K/uL BMP 04/27/22 04/28/22 15:45 06:59 Sodium 139 140 Potassium 3.4 L 4.0 Chloride 105 110 H Carbon Dioxide 29 28 BUN 12 12 Creatinine 0.74 0.56 L Glucose 106 H 86 Calcium 9.3 8.2 L Liver Function 04/27/22 Range/Units 15:45 Total Bilirubin 0.4 (0.2-1.0) mg/dl AST 21 (13-39) U/L ALT 28 (7-52) U/L Alkaline Phosphatase 50 (34-104) U/L Albumin 4.0 (3.4-5.0) gm/dl Medications Administered Current Inpatient Medications Acetaminophen (Acetaminophen 325 Mg Tab) 650 mg PO Q4H PRN PRN Reason: Pain or Fever Stop: 05/27/22 20:03 Last Admin: 04/27/22 21:31 Dose: 650 mg Amlodipine Besylate (Amlodipine Besylate 5 Mg Tab) 7.5 mg PO DAILY [facility] Stop: 05/28/22 08:59 Last Admin: 04/28/22 08:08 Dose: 7.5 mg Buspirone HCl (Buspirone 5 Mg Tab) 5 mg PO TID [facility] Stop: 05/27/22 20:59 Last Admin: 04/28/22 08:07 Dose: 5 mg Escitalopram Oxalate (Escitalopram Oxalate 10 Mg Tab) 10 mg PO DAILY [facility] Stop: 05/28/22 08:59 Last Admin: 04/28/22 08:07 Dose: 10 mg Sodium Chloride (Nss 1000ml) 1,000 mls @ 75 mls/hr IV .[id number] [facility] Stop: 04/28/22 22:05 Last Admin: 04/28/22 10:59 Dose: 75 mls/hr Ceftriaxone Sodium 2,000 mg/ (Dextrose) 70 mls @ 100 mls/hr IV Q24H [facility]; Protocol Stop: 05/08/22 15:59 Promethazine HCl 12.5 mg/ (Sodium Chloride) 50.5 mls @ 202 mls/hr IV Q6H PRN PRN Reason: Nausea And Vomiting Stop: 05/27/22 20:03 Loratadine (Loratadine 10 Mg Tab) 10 mg PO DAILY [facility] Stop: 05/28/22 08:59 Last Admin: 04/28/22 08:07 Dose: 10 mg Losartan Potassium (Losartan Potassium 50 Mg Tab) 100 mg PO DAILY [facility] Stop: 05/28/22 08:59 Last Admin: 04/28/22 08:08 Dose: 100 mg Metoprolol Succinate (Metoprolol Succ 50mg Ext Rel Tab) 50 mg PO DAILY [facility] Stop: 05/28/22 08:59 Last Admin: 04/28/22 08:08 Dose: 50 mg Miscellaneous (Order Awaiting Action ((Iron,Carbonyl-Vitamin C [Vitron-C] 65 Mg Iron- 125 Mg Tablet,Del)) 1 each N/A QS [facility] Stop: 05/28/22 00:00 Last Admin: 04/28/22 07:45 Dose: Not Given Pantoprazole Sodium (Pantoprazole 40 Mg Tab) 40 mg PO DAILY [facility] Stop: 05/28/22 08:59 Last Admin: 04/28/22 08:08 Dose: 40 mg Polyethylene Glycol (Polyethylene (Miralax) 17 Gm Pack) 17 gm PO DAILY PRN PRN Reason: Constipation Stop: 05/27/22 20:03 Valacyclovir HCl (Valacyclovir Hcl 500 Mg Tablet) 500 mg PO BID [facility] Stop: 05/27/22 20:59 Last Admin: 04/28/22 08:07 Dose: 500 mg
[2022-04-28] MEDS ORDERED: cefTRIAXone SODIUM 2,000 MG in DEXTROSE 5% 50 ML IV SCH (16:00)
[2022-04-29 07:39] LABS: Basophils # (auto) 0.03 K/uL (0-0.2); Basophils % (auto) 0.5 %; Eosinophils # (auto) 0.08 K/uL (0-0.50); Eosinophils % (auto) 1.3 %; Hematocrit (blood only) 30.4 % (34.1-44.9); Hemoglobin 10.2 g/dl (12.0-16.0); Immature Granulocytes # (auto) 0.02 K/uL (0.00-0.02); Immature Granulocytes % (auto) 0.3 %; Lymphocytes # (auto) 1.74 K/uL (1.2-3.4); Lymphocytes % (auto) 29.1 %; Mean Corpuscular Hemoglobin 29.8 pg (25.0-34.0); Mean Corpuscular Hgb Conc 33.6 g/dL (32.0-36.0); Mean Corpuscular Volume 88.9 fL (80.0-100.0); Mean Platelet Volume 9.6 fL (9.4-12.3); Monocytes # (auto) 0.53 K/uL (0.24-0.82); Monocytes % (auto) 8.9 %; Neutrophils # (auto) 3.57 K/uL (1.4-6.5); Neutrophils % (auto) 59.9 %; Platelet Count 134 K/uL (130-400); RDW Coefficient of Variation 12.9 % (11.5-14.5); RDW Standard Deviation 42.3 fL (36.4-46.3); Red Blood Count 3.42 M/uL (3.93-5.22); White Blood Count 5.97 K/ul (4.8-10.8)
[2022-04-29 08:01] LABS: BUN Creatinine Ratio 12.8 (10-20); Calcium 8.5 mg/dl (8.5-10.1); Creatinine Clr Calc Pharmacy 169.1 ml/min; Est GFR (African American) 143.2 ml/min; Est GFR (Non-African American) 123.6 ml/min; Potassium 3.4 mmol/L (3.5-5.1)
[2022-04-29] MEDS ORDERED: CEFDINIR 300 MG CAP PO SCH (09:15)
[2022-04-29] MEDS: valACYclovir HCL 500 MG TABLET PO SCH (09:19)
[2022-04-29] MEDS: busPIRone 5 MG TAB PO SCH ×2 (09:19→13:52)
[2022-04-29] MEDS: METOPROLOL SUCC 50MG EXT REL TAB PO SCH (09:20)
[2022-04-29] MEDS: ESCITALOPRAM OXALATE 10 MG TAB PO SCH (09:20)
[2022-04-29] MEDS: amLODIPine BESYLATE 5 MG TAB PO SCH (09:20)
[2022-04-29] MEDS: LORATADINE 10 MG TAB PO SCH (09:22)
[2022-04-29] MEDS: LOSARTAN POTASSIUM 50 MG TAB PO SCH (09:22)
[2022-04-29] MEDS: PANTOprazole 40 MG TAB PO SCH (09:22)
--- NOTE | 2022-04-29 11:29 | Hospitalist Progress Note ---
Date of Service April 29, 2022 Assessment & Plan (1) Bacteremia due to Gram-negative bacteria: (2) Pyelonephritis: Plan: Patient is 42-year-old female with PMH depression, HTN, GERD, tobacco use presented to ER for dysuria and positive blood cultures. 10 days dysuria, urinary frequency. +lower abdominal pain, right flank pain, fever/chills. Seen in ER 04/26/2022 and diagnosed with UTI, pyelonephritis and was given dose of IV Rocephin and discharged on cefdinir. 04/26/22 preliminary blood cultures +gram negative bacilli 04/26/22 urine culture is growing gram-negative bacilli 04/26/22 CT Abd/pelvis: 1. Urothelial thickening of the renal collecting systems and ureters is suggestive of an ascending infection. Patchy areas of ill-defined decreased enhancement within the left kidney are suggestive of associated pyelonephritis. 2. Urinary bladder wall thickening suggests cystitis. 3. No bowel obstruction or bowel wall thickening. Normal appendix. On 04/27/2022 WBC: 11, Lactate: WNL, Procalcitonin: 0.25 Repeat blood cultures -negative. No fever and or chills and no sweating Started on intravenous Rocephin and IV fluid Continue Rocephin Urine and 1 out of 2 blood culture is positive for E. coli and is sensitive to many antibiotics except ampicillin and cefazolin Discussed with the pharmacist about the use of antibiotic Will start oral cefdinir need and she will be discharged home this afternoon Will finish the course of antibiotic for 7 more days and was advised to drink plenty of fluid Will have an outpatient appointment within 7 days (3) Hypokalemia: Plan: K: 3.4. Magnesium: 1.8 Replace and monitor Electrolytes are corrected (4) Hypertension: Plan: Continue amlodipine, losartan, metoprolol succinate Blood pressure remains stable and controlled (5) Depression: Plan: Continue escitalopram, buspirone (6) GERD (gastroesophageal reflux disease): Plan: Continue PPI (7) Tobacco use: Plan: Smoking cessation encouraged Denies nicotine patch at this time DVT Prophylaxis SCDs Follows with Dr Mendosa for routine care She will be going home this afternoon Admission and Anticipated Discharge Date Admission Date: April 27, 2022 Subjective 04/28/2022 The patient was seen and examined in medical telemetry unit She has been feeling much better and denies any pain in the right loin No abdominal pain, nausea or vomiting and no fever and or chills 04/29/2022 The patient was seen and examined in medical telemetry unit She has been feeling much better and denies any symptoms Denies any back pain, any abdominal pain, nausea and or vomiting Does not have any urinary symptoms No fever and or chills Review of Systems Review of Systems: All systems reviewed and are unremarkable except as noted below Physical Exam Physical Exam: Lying in bed comfortably Constitutional: average body habitus; not ill appearing Eyes: PERRL, conjunctivae normal, anicteric sclerae ENMT: external ear and nose normal, oropharynx normal Neck: trachea midline, no thyromegaly Respiratory: no respiratory distress Auscultation: lungs clear to auscultation bilaterally Cardiovascular: Rate/Rhythm: regular rate and regular rhythm; not tachycardic Heart Sounds: normal S1 and normal S2; no murmur Extremities: no edema Gastrointestinal (Abdomen): Inspection/Auscultation: normal bowel sounds; abdomen not distended Percussion/Palpation: + abdomen tender (Minimally tender hypogastrium without any tenderness in the renal angles) and abdomen soft Psychiatric: A+Ox3, euthymic affect Lymphatic: no cervical or axillary lymphadenopathy Results & Data Results & Data ([facility]) Vital Signs (Past 12 Hours) Vital Signs Temp Pulse Pulse Resp BP Pulse Ox O2 Del Method 04/29/22 11:10 36.8 C 74 18 144/91 H 98 Room Air 04/29/22 08:17 36.8 C 74 19 148/88 H 97 Room Air 04/29/22 06:10 79 04/29/22 04:39 36.9 C 80 18 145/93 H 98 Room Air Laboratory Results Short CBC 04/29/22 Range/Units 07:30 WBC 5.97 (4.8-10.8) K/ul Hgb 10.2 L (12.0-16.0) g/dl Hct 30.4 L (34.1-44.9) % Plt Count 134 (130-400) K/uL BMP 04/29/22 07:30 Sodium 140 Potassium 3.4 L Chloride 108 H Carbon Dioxide 27 BUN 6 Creatinine 0.47 L Glucose 90 Calcium 8.5 Medications Administered Current Inpatient Medications Acetaminophen (Acetaminophen 325 Mg Tab) 650 mg PO Q4H PRN PRN Reason: Pain or Fever Stop: 05/27/22 20:03 Last Admin: 04/27/22 21:31 Dose: 650 mg Amlodipine Besylate (Amlodipine Besylate 5 Mg Tab) 7.5 mg PO DAILY [facility] Stop: 05/28/22 08:59 Last Admin: 04/29/22 09:20 Dose: 7.5 mg Buspirone HCl (Buspirone 5 Mg Tab) 5 mg PO TID [facility] Stop: 05/27/22 20:59 Last Admin: 04/29/22 09:19 Dose: 5 mg Cefdinir (Cefdinir 300 Mg Cap) 300 mg PO BID [facility] Stop: 05/09/22 09:14 Last Admin: 04/29/22 09:46 Dose: 300 mg Escitalopram Oxalate (Escitalopram Oxalate 10 Mg Tab) 10 mg PO DAILY [facility] Stop: 05/28/22 08:59 Last Admin: 04/29/22 09:20 Dose: 10 mg Promethazine HCl 12.5 mg/ (Sodium Chloride) 50.5 mls @ 202 mls/hr IV Q6H PRN PRN Reason: Nausea And Vomiting Stop: 05/27/22 20:03 Loratadine (Loratadine 10 Mg Tab) 10 mg PO DAILY [facility] Stop: 05/28/22 08:59 Last Admin: 04/29/22 09:22 Dose: 10 mg Losartan Potassium (Losartan Potassium 50 Mg Tab) 100 mg PO DAILY [facility] Stop: 05/28/22 08:59 Last Admin: 04/29/22 09:22 Dose: 100 mg Metoprolol Succinate (Metoprolol Succ 50mg Ext Rel Tab) 50 mg PO DAILY [facility] Stop: 05/28/22 08:59 Last Admin: 04/29/22 09:20 Dose: 50 mg Miscellaneous (Order Awaiting Action ((Iron,Carbonyl-Vitamin C [Vitron-C] 65 Mg Iron- 125 Mg Tablet,Del)) 1 each N/A QS [facility] Stop: 05/28/22 00:00 Last Admin: 04/29/22 09:46 Dose: Not Given Pantoprazole Sodium (Pantoprazole 40 Mg Tab) 40 mg PO DAILY [facility] Stop: 05/28/22 08:59 Last Admin: 04/29/22 09:22 Dose: 40 mg Polyethylene Glycol (Polyethylene (Miralax) 17 Gm Pack) 17 gm PO DAILY PRN PRN Reason: Constipation Stop: 05/27/22 20:03 Valacyclovir HCl (Valacyclovir Hcl 500 Mg Tablet) 500 mg PO BID [facility] Stop: 05/27/22 20:59 Last Admin: 04/29/22 09:19 Dose: 500 mg
--- NOTE | 2022-04-30 07:17 | Discharge Summary ---
Date of Service April 29, 2022 Admission HPI Per Admitting Provider Patient is 42-year-old female with PMH depression, HTN, GERD, tobacco use presented to ER for dysuria and positive blood cultures. Patient was seen in ER 04/26/2022. She reports 10 days of urinary frequency, dysuria. Yesterday she started with lower abdominal discomfort and then right flank discomfort. Also complains of fever, chills, nausea, vomiting. She was diagnosed with UTI, pyelonephritis and was given dose of IV Rocephin and discharged on cefdinir. Today patient's preliminary blood cultures Positive for gram-negative bacilli. Patient was called and she returned to ER today. Patient states continued nausea, intermittent vomiting. Having some right flank discomfort. Also has continued dysuria and urinary frequency. Denies noted hematuria. Denies hematemesis, diarrhea, constipation, [place], dizziness, syncope, vision changes, neck pain, CP, SOB, orthopnea, palpitations, cough, sore throat, choking, otalgia, rhinorrhea, paresthesias, weakness, extremity weakness, extremity edema, rashes. Admission Exam Per Admitting Provider Physical Exam: General: no distress, WDWN Head: normocephalic, atraumatic Eyes: conjunctiva non-injected, anicteric ENT: normal inspection external ears, nose, mucous membranes moist Neck: supple, trachea midline, non-tender Lungs: clear, no respiratory distress, no wheezing/rhonchi/rales CV: +tachycardia, regular rhythm, no murmur, no pretibial edema Abd: normal BS, soft, +tenderness to palpation RLQ, LLQ, + R CVA tenderness Ext: no cyanosis, no calf tenderness Neuro: A&O x 3, no focal deficits noted, normal affect Skin: warm, dry Principal Diagnosis E. coli bacteremia, pyelonephritis, hypertension Discharge Exam Lying in bed comfortably Constitutional average body habitus; not ill appearing Eyes PERRL, conjunctivae normal, anicteric sclerae ENMT external ear and nose normal, oropharynx normal Neck trachea midline, no thyromegaly Respiratory no respiratory distress Auscultation: lungs clear to auscultation bilaterally Cardiovascular Rate/Rhythm: regular rate and regular rhythm; not tachycardic Heart Sounds: normal S1 and normal S2; no murmur Extremities: no edema Gastrointestinal (Abdomen) Inspection/Auscultation: normal bowel sounds; abdomen not distended Percussion/Palpation: + abdomen tender (Minimally tender hypogastrium without any tenderness in the renal angles) and abdomen soft Psychiatric A+Ox3, euthymic affect Lymphatic no cervical or axillary lymphadenopathy Discharge Data Allergies Allergy/AdvReac Type Severity Reaction Status Date / Time lisinopril AdvReac Intermediate Cough Verified 04/27/22 17:14 Consultations 04/27/22 16:18 ED Decision to Admit Stat Hospital Course (1) Bacteremia due to Gram-negative bacteria: (2) Pyelonephritis: Patient is 42-year-old female with PMH depression, HTN, GERD, tobacco use presented to ER for dysuria and positive blood cultures. 10 days dysuria, urinary frequency. +lower abdominal pain, right flank pain, fever/chills. Seen in ER 04/26/2022 and diagnosed with UTI, pyelonephritis and was given dose of IV Rocephin and discharged on cefdinir. 04/26/22 preliminary blood cultures +gram negative bacilli 04/26/22 urine culture is growing gram-negative bacilli 04/26/22 CT Abd/pelvis: 1. Urothelial thickening of the renal collecting systems and ureters is suggestive of an ascending infection. Patchy areas of ill-defined decreased enhancement within the left kidney are suggestive of associated pyelonephritis. 2. Urinary bladder wall thickening suggests cystitis. 3. No bowel obstruction or bowel wall thickening. Normal appendix. On 04/27/2022 WBC: 11, Lactate: WNL, Procalcitonin: 0.25 Repeat blood cultures -negative. No fever and or chills and no sweating Started on intravenous Rocephin and IV fluid Continue Rocephin Urine and 1 out of 2 blood culture is positive for E. coli and is sensitive to many antibiotics except ampicillin and cefazolin Discussed with the pharmacist about the use of antibiotic Will start oral cefdinir need and she will be discharged home this afternoon Will finish the course of antibiotic for 7 more days and was advised to drink plenty of fluid Will have an outpatient appointment within 7 days (3) Hypokalemia: K: 3.4. Magnesium: 1.8 Replace and monitor Electrolytes are corrected (4) Hypertension: Continue amlodipine, losartan, metoprolol succinate Blood pressure remains stable and controlled (5) Depression: Continue escitalopram, buspirone (6) GERD (gastroesophageal reflux disease): Continue PPI (7) Tobacco use: Smoking cessation encouraged Denies nicotine patch at this time DVT Prophylaxis SCDs Follows with Dr Mendosa for routine care She will be going home this afternoon Total Time Total Time Spent Total Time Spent (In Minutes): 35 minutes Discharge Plan Discharge Items Patient Disposition: Home - Self-Care Reason For Visit: BACTEREMIA Discharge Diagnosis: E. coli bacteremia, pyelonephritis, hypertension Condition on Discharge: Good Activity: Resume your previous activity Non-emergency contact: Primary Care Provider Call non-emergency contact if: you have any medication questions and your symptoms worsen Follow-up/Referrals: Gabriel Mendosa MD [Primary Care Provider] - 05/03/22 2:00 pm Diet: Regular Addtl Attending Provider Instructions: Drink plenty of fluids. Please finish the course of antibiotic Keep appointment with your PCP Pending Studies at Discharge: No Stand-Alone Forms: [employer], Work/School Release, Smoking Cessation Medications and DC Order Prescriptions: Continued fluticasone propionate 50 mcg/actuation spray,suspension 1 - 2 spray intranasal DAILY PRN (Reason: Congestion) Qty: 1 Label Comments: 1 to 2 sprays intranasal DAILY; valacyclovir 500 mg tablet 500 mg PO BID Qty: 60 12RF loratadine [Claritin] 10 mg Tablet 10 mg PO DAILY losartan 100 mg tablet 100 mg PO DAILY Qty: 30 0RF cefdinir 300 mg capsule 300 mg PO BID 14 Days Qty: 28 0RF Rx Instructions: STARTED 04/27/22 FOR 14 DAYS. ondansetron 4 mg tablet,disintegrating 4 mg PO Q8H PRN (Reason: nausea and vomiting) Qty: 10 0RF buspirone 5 mg tablet 5 mg PO TID metoprolol succinate 50 mg tablet extended release 24 hr 50 mg PO DAILY amlodipine 5 mg tablet 7.5 mg PO DAILY escitalopram oxalate 10 mg tablet 10 mg PO DAILY [id number] carb-vit K 18 mg iron-400 mcg-500 mg Tablet 1 tab PO DAILY fluconazole [Diflucan] 150 mg tablet 150 mg PO DIRECTED PRN (Reason: "AFTER ANTIBIOTICS" PER PT.) bisacodyl [Dulcolax (bisacodyl)] 5 mg Tablet,Delayed Release (Dr/Ec) 5 mg PO DAILY PRN (Reason: Constipation) esomeprazole magnesium [Nexium] 20 mg Capsule,Delayed Release(Dr/Ec) 40 mg PO DAILY Vitron-C 65 mg iron- 125 mg Tablet,Delayed Release (Dr/Ec) 1 tab PO DAILY Discharge Orders: Discharge Order (Routine); Ordered 04/29/22 Ordered By: Angela Mack Admission Data Admit Date/Time: 04/27/22 16:48 Attending Provider: Angela Mack Admit Provider: Clem Lozano Primary Care Provider: Gabriel Mendosa Other Providers: Clem Lozano Other Interventions: Discharge Summary Assessment (RN) Last Done: 04/29/22 13:16
== END 2022-04-29 15:40 | disposition home or self-care (01) | DRG 872 ==
LOC: ED 15:27 → 2W 16:48 → SUATTDRO 16:48 → 2W 19:36